=== PATIENT | male | born 2000 | race Asian ===

== ENCOUNTER 2022-02-19 12:19 | Emergency (ER) | payer OTHER ==
[~2022-02-19] VITALS: Ht 170.2 cm; Wt 63.6 kg
[2022-02-19] MEDS ORDERED: CYCL-707 PO (12:51)
[2022-02-19 16:36] LABS: GC DNA AMPLIFICATION NEGATIVE (NEGATIVE)
[2022-02-19] MEDS ORDERED: DOXY-443 PO (16:50)
[2022-02-19] MEDS ORDERED: DOXYCYCLINE HYCLATE 100MG TABLET PO ONE (17:00)
[2022-02-19 17:08] VITALS: BP 123/69
== END 2022-02-19 17:09 | disposition home or self-care (01) ==
LOC: M ED 12:19
DX: L02.412 Cutaneous abscess of left axilla (principal); A74.9 Chlamydial infection, unspecified; F17.200 Nicotine dependence, unspecified, uncomplicated; Z79.899 Other long term (current) drug therapy

== ENCOUNTER 2022-12-12 22:01 | Inpatient (IN) | payer OTHER ==
[~2022-12-12] VITALS: Ht 170.2 cm; Wt 61.3 kg
[~2022-12-12 22:01] MED LIST: CYCL-707 PO; DOXY-443 PO
[2022-12-12 23:04] LABS: HEMATOCRIT 39.1 % (42.0-52.0); HEMOGLOBIN 12.1 g/dl (13.5-17.5); MEAN CORPUSCULAR HGB CONC 30.9 g/dl (32.0-36.5); PLATELET COUNT, AUTOMATED 212 10^3/uL (150-450); RED BLOOD COUNT 5.75 10^6/uL (4.30-6.10); WHITE BLOOD COUNT 10.7 10^3/uL (4.0-10.0)
[2022-12-12 23:25] LABS: ETHYL ALCOHOL (ETHANOL) < 0.003 % (0.000-0.010)
[2022-12-12 23:27] LABS: ACETAMINOPHEN LEVEL < 2.0 UG/ML (10.0-20.0); ALBUMIN 4.2 G/DL (3.2-5.2); ALKALINE PHOSPHATASE 59 U/L (46-116); ALT/SGPT < 9 U/L (7.0-40); AST/SGOT < 8 U/L (<34); BILIRUBIN,DIRECT 0.1 MG/DL (<0.4); BILIRUBIN,TOTAL 0.4 MG/DL (0.3-1.2); BLOOD UREA NITROGEN 8 MG/DL (9-23); CALCIUM LEVEL 9.3 MG/DL (8.5-10.1); CARBON DIOXIDE LEVEL 27 MMOL/L (20-31); CHLORIDE LEVEL 105 MMOL/L (98-107); GLOMERULAR FILTRATION RATE > 60.0 (>60); GLUCOSE, FASTING 115 MG/DL (60-100); SALICYLATE LEVEL < 3.0 MG/DL (<30); SODIUM LEVEL 141 MMOL/L (136-145); TOTAL PROTEIN 6.9 G/DL (5.7-8.2)
[2022-12-12 23:29] LABS: THYROID STIMULATING HORMONE 0.766 uIU/ML (0.55-4.78)
[2022-12-12] MEDS ORDERED: DICL1GEL3 TOP (23:43)
[2022-12-12] MEDS ORDERED: METH-1164 PO (23:43)
[2022-12-12] MEDS ORDERED: CAPS25CR TOP (23:43)
[2022-12-12] MEDS ORDERED: HOME MED LIST COMPLETE! XX SCH (23:45)
[2022-12-13 01:04] LABS: AMPHETAMINES LEVEL URINE NEGATIVE (NEGATIVE); BARBITURATES URINE NEGATIVE (NEGATIVE); BENZODIAZEPINES URINE NEGATIVE (NEGATIVE); CANNABINOIDS URINE NEGATIVE (NEGATIVE); COCAINE METABOLITE URINE NEGATIVE (NEGATIVE); METHADONE URINE NEGATIVE (NEGATIVE); OPIATES URINE NEGATIVE (NEGATIVE); PHENCYCLIDINE URINE NEGATIVE (NEGATIVE)
[2022-12-13] MEDS ORDERED: MAALOX 30 ML SUSP *UDC PO PRN (13:10)
[2022-12-13] MEDS ORDERED: methocarbamoL 500 MG TAB PO PRN (13:10)
[2022-12-13] MEDS ORDERED: CAPSAICIN 0.025% CR 60 GM TOP PRN (13:10)
[2022-12-13] MEDS ORDERED: diphenhydrAMINE 25MG CAP PO PRN (13:10)
[2022-12-13] MEDS ORDERED: IBUPROFEN 400MG TAB PO PRN (13:10)
[2022-12-13] MEDS ORDERED: MOM 30ML SUSPENSION UDC PO PRN (13:10)
[2022-12-13] MEDS ORDERED: traZODone 50 MG TAB PO PRN (13:10)
[2022-12-13] MEDS ORDERED: ACETAMINOPHEN TAB 650MG DOSE (2X325MG) PO PRN (13:10)
[2022-12-13] MEDS: NICOTINE 21MG/24HR 1 EA TRANSDERMAL TD SCH (13:56)
[2022-12-13] MEDS ORDERED: DICLOFENAC EPOLAMINE 1.3% PATCH TOP PRN (21:00)
[2022-12-14 02:55] VITALS: BP 106/65; TEMP 97; O2SAT 99
[2022-12-14 06:40] VITALS: BP 104/52; TEMP 98.2; O2SAT 99
[2022-12-14] MEDS: NICOTINE 21MG/24HR 1 EA TRANSDERMAL TD SCH (08:42)
[2022-12-14] MEDS ORDERED: hydrOXYzine 50 MG TAB PO PRN (12:45)
[2022-12-14] MEDS ORDERED: SERTRALINE HCL 25 MG TABLET PO ONE (12:45)
[2022-12-14 16:24] VITALS: BP 116/65; TEMP 98.2; O2SAT 99
[2022-12-15 06:42] VITALS: BP 100/53; TEMP 97.6; O2SAT 99
[2022-12-15] MEDS: SERTRALINE HCL 50 MG TAB PO SCH (07:33)
[2022-12-15] MEDS: NICOTINE 21MG/24HR 1 EA TRANSDERMAL TD SCH (07:33)
[2022-12-15 16:59] VITALS: BP 117/72; TEMP 98.1; O2SAT 98
[2022-12-16 06:30] VITALS: BP 133/72; TEMP 97.8; O2SAT 98
[2022-12-16] MEDS: SERTRALINE HCL 50 MG TAB PO SCH (08:08)
[2022-12-16] MEDS: NICOTINE 21MG/24HR 1 EA TRANSDERMAL TD SCH (08:09)
[2022-12-16 18:04] VITALS: BP 150/90; TEMP 97.8
[2022-12-17 06:34] VITALS: BP 120/73; TEMP 97.8; O2SAT 99
[2022-12-17] MEDS: SERTRALINE HCL 50 MG TAB PO SCH (08:33)
[2022-12-17] MEDS: NICOTINE 21MG/24HR 1 EA TRANSDERMAL TD SCH (08:34)
[2022-12-17 17:38] VITALS: BP 128/85; TEMP 97.8; O2SAT 100
[2022-12-17] MEDS ORDERED: SERT50TA29 PO (18:21)
[2022-12-17] MEDS ORDERED: NICO21PAT TD (18:21)
[2022-12-18 06:06] VITALS: BP 119/67; TEMP 99; O2SAT 100
[2022-12-18] MEDS: SERTRALINE HCL 50 MG TAB PO SCH (07:56)
[2022-12-18] MEDS: NICOTINE 21MG/24HR 1 EA TRANSDERMAL TD SCH (09:00)
== END 2022-12-18 13:26 | disposition home or self-care (01) | DRG 882 ==
LOC: M ED 22:01 → M ED INP 12-13 13:08 → M PSY 12-14 01:33
PROVIDERS: ADMIT Student in an Organized Health Care Education/Training Program; ATTEND Student in an Organized Health Care Education/Training Program
DX: F43.25 Adjustment disorder with mixed disturbance of emotions and conduct (principal); R45.851 Suicidal ideations; F32.A Depression, unspecified; F17.200 Nicotine dependence, unspecified, uncomplicated; Z79.899 Other long term (current) drug therapy